=== PATIENT | female | born 1965 | race Caucasian/White ===

== ENCOUNTER 2024-01-22 06:24 | Day surgery (SDC) | payer BC, SELFPAY ==
[2024-01-22] VITALS (9 sets, daily range): BP systolic 93–124; BP diastolic 46–69; BMI 26.9
[2024-01-22] MEDS: CELEBREX 200 MG PO (10:21)
[2024-01-22] MEDS: TYLENOL 1000 MG PO (10:21)
[2024-01-22] MEDS: ZOFRAN 4 MG IV (13:29)
== END 2024-01-22 15:45 | disposition home or self-care (01) ==
LOC: SDS 06:24
PROVIDERS: ATTENDING PHYSICIAN Orthopaedic Surgery
DX: M75.111 Incomplete rotator cuff tear or rupture of right shoulder, not specified as traumatic (principal)
CPT/HCPCS: 29827; 29826; C1713